=== PATIENT | male | born 1945 | race Caucasian/White ===

== ENCOUNTER 2020-04-01 08:40 | Inpatient (IN) | payer MEDICARE ==
[2020-04-01] VITALS (184 sets, daily range): BP systolic 74–143; BP diastolic 50–97; PULSE 84–126; TEMP 97.7–98.5; O2SAT 81–100
[~2020-04-01] VITALS: Ht 177.8 cm; Wt 118.0 kg
[2020-04-01 09:22] LABS: HEMATOCRIT 38.1 % (42.0-52.0); HEMOGLOBIN 13.3 g/dl (13.5-18.0); MEAN CELL VOLUME 93 fl (80.0-100.0); MEAN CORPUSCULAR HEMOGLOBIN 33 pg (27.0-31.0); MEAN CORPUSCULAR HGB CONC 35 g/dl (33.0-37.0); PLATELET COUNT 240 K/mm3 (130-400); RED BLOOD COUNT 4.09 M/mm3 (4.20-5.60); REDCELL DISTRIBUTION WIDTH-CV 12.7 % (11.5-14.5)
[2020-04-01 09:31] LABS: INR 1.1 (0.8-3.0); PROTHROMBIN TIME 11.9 SECONDS (9.7-12.8)
[2020-04-01 09:32] LABS: ALBUMIN 4.3 gm/dL (3.5-5.0); BILIRUBIN,TOTAL 0.7 mg/dL (0.0-1.0); CALCIUM 8.8 mg/dL (8.4-10.2); CREATININE, serum 1.2 (0.66-1.25); POTASSIUM 3.9 mmol/L (3.4-5.0); TOTAL PROTEIN 7.4 gm/dL (6.4-8.2)
[2020-04-01] MEDS ORDERED: TYLENOL 8 HR PO (10:04)
[2020-04-01] MEDS ORDERED: ASPIRIN E.C. 8181 MG PO (10:05)
[2020-04-01] MEDS ORDERED: NORVASC 10MG10 MG PO (10:06)
[2020-04-01] MEDS ORDERED: TOPROL XL 25MG25 MG PO (10:06)
[2020-04-01] MEDS ORDERED: COZAAR100 MG PO (10:07)
[2020-04-01] MEDS ORDERED: FLOMAX 0.40.4 MG/CAP PO (10:08)
[2020-04-01] MEDS ORDERED: ULTRAM 50MG TAB50 MG PO (10:09)
[2020-04-01] MEDS ORDERED: PRAVACHOL 40MG40 MG PO (10:09)
[2020-04-01] MEDS ORDERED: PEPCID40 MG PO (10:10)
[2020-04-01] MEDS ORDERED: NEURONTIN300 MG/CAP PO (10:11)
[2020-04-01] MEDS ORDERED: LASIX 20MG TABL20 MG PO (10:12)
[2020-04-01] MEDS ORDERED: GLUCOPHAGE500 MG/TAB PO (10:12)
[2020-04-01] MEDS ORDERED: NOVOLIN 70/30 710 ML SQ (10:15)
--- NOTE | 2020-04-01 11:18 | NUR ---
DR. CAMPO AT BS TO DISCUSS POC, PT HAS CONVERTED BACK TO SINUS AND THEN BACK TO AFIB AT THIS TIME.
--- NOTE | 2020-04-01 12:55 | NUR ---
PT ARRIVES BACK FROM [facility] AND PLACED ON BEDSIDE CONTINUOUS MONITOR. PT TO [facility] WITH JENNY RN AT 1015. RT WRIST CATH SITE LOOKS GOOD AND HAS A TR BAND IN PLACE. PER REPORT, NO AIR HAS BEEN RELEASSED FROM SITE AND PER DR SANCHEZ WOULD LIKE TO NOT START RELEASING ANY AIR UNTIL FOUR HOURS POST, TR BAND PLACED AT 1100. PT DENIES ANY CP/PRESSURE UPON ARRIVAL TO UNIT. PT ON RA. SEE GTT FLOWSHEET. CALL LIGHT AND URINAL WITHIN REACH.
--- NOTE | 2020-04-01 13:15 | NUR ---
PT remains awake and alert, and in no acute distress while waiting for transfer to ICU for treatment of his new onset AFIB. Cardizem drip at 5mg/hr and NS 150/hr infusing to 20 g saline lock to rt hand. Pt tolerating treatment well. He has been up to commode x 2 with no problem with stand by assist. I have given report to Ingrid ZUNIGA. I also spoke with pt's in the lobby and updated her on poc encouraging her to call ICU for updates on her 's care.
--- NOTE | 2020-04-01 14:52 | NUR ---
DR BERUMEN AT BEDSIDE FOR ASSESSMENT.
--- NOTE | 2020-04-01 22:00 | NUR ---
Patient was transferred from ICU to medical floor-- VSS, Tele on, NSR at this time, rate 82/min, Alert/oriented, very talkative ,, Has IV fluids of 1/2 NS at 50cc/hr and Cardizem drip at 5mg/hr,,
[2020-04-02 01:02] VITALS: BP 140/64; PULSE 88; TEMP 98.4
--- NOTE | 2020-04-02 04:30 | NUR ---
Has been resting on and off, patient informed nurse he did not get an answer from the staff about more nerve pain pills tonight so he did take his own Neurontin and also took his own Tramadol at this time--- in formed him that he cannot annetta his own meds for safety reasons--pt states understanding,, I will take his home meds out of his room amd put in med room -- pt may be going home today--will let day nurse know about where his home meds are kept-
[2020-04-02 04:58] VITALS: BP 145/52; PULSE 88; TEMP 97.6
[2020-04-02 06:22] LABS: CALCIUM 8.7 mg/dL (8.4-10.2); CREATININE, serum 1.15 (0.66-1.25); MAGNESIUM 1.5 mg/dL (1.6-2.3); POTASSIUM 4.1 mmol/L (3.4-5.0)
[2020-04-02 06:48] LABS: TSH w REFLEX 0.526 uIU/mL (0.465-4.680)
--- NOTE | 2020-04-02 07:00 | NUR ---
Report received from EFRAIN Vela. PT in bed sleeping, called, will let him know and ocntinue to monitor.
[2020-04-02 07:48] VITALS: BP 132/52; PULSE 86; TEMP 98
[2020-04-02 08:20] LABS: HEMOGLOBIN 12.1 g/dl (13.5-18.0); MEAN CELL VOLUME 97 fl (80.0-100.0); MEAN CORPUSCULAR HEMOGLOBIN 33 pg (27.0-31.0); MEAN CORPUSCULAR HGB CONC 34 g/dl (33.0-37.0); MEAN PLATELET VOLUME 9.6 fl (7.4-10.4); PLATELET COUNT 212 K/mm3 (130-400); RED BLOOD COUNT 3.71 M/mm3 (4.20-5.60); REDCELL DISTRIBUTION WIDTH-CV 13.1 % (11.5-14.5)
[2020-04-02 08:47] LABS: HEMATOCRIT 35.8 % (42.0-52.0)
[2020-04-02 08:52] LABS: EOSINOPHIL 3 % (0-4); NEUTROPHILS 39 % (42.0-75.2)
[2020-04-02 08:53] LABS: PLATELET ESTIMATE NORMAL (NORMAL)
[2020-04-02 08:54] LABS: LYMPHOCYTE 51 % (20.0-51.0)
--- NOTE | 2020-04-02 09:15 | NUR ---
Assessment charted. PT is very loud and talkative, has a hard time resting and listening to plan of care but is agreeable to plan when he can calm down. Pt rates pain in feet and hands at 4/10. RW IVF with cardz gtt, IVF and magnesium. Pt denies needs, will continue to monitor.
[2020-04-02 11:42] VITALS: BP 151/59; PULSE 95; TEMP 97.6
--- NOTE | 2020-04-02 12:40 | NUR ---
[employer] visited extensively and offered support with patient. Nothing else needed at this time.
[2020-04-02] MEDS ORDERED: PACERONE400 MG PO (13:12)
[2020-04-02] MEDS ORDERED: ELIQUIS 5MG PO (13:13)
[2020-04-02] MEDS ORDERED: CARDIZEM CD 12120 MG PO (13:14)
[2020-04-02] MEDS ORDERED: CORDARONE200 MG/TAB PO (13:17)
--- NOTE | 2020-04-02 14:23 | NUR ---
SW met with patient to conduct intake assessment. Patient lives at home in [place] with Rose (P# [phone]). Patient does not have DPOA-HC and was not interested in paperwork at this time. Patient is independent at home, but he does use a cane for mobility. Patient states that he has a walker but does not need it presently. Patient see physician at [facility] in [place] but does not remember the name. Patient uses [facility] for medications. Patient states that he needs no assistance in affording medications. Patient plans to return home with Rose today 04/02. There are no further needs at this time.
--- NOTE | 2020-04-02 15:00 | NUR ---
Discharge teaching completed at this time. Pt received discharge packet, meds and scripts reviewed, f/u appointments reviewed. Pt received packet, all belongings, signed forms. INT dc'd, tip intact. Pt escorted out by medical staff, family to drive home, criteria met.
== END 2020-04-02 15:00 | disposition home or self-care (01) | DRG 310 ==
LOC: COL.RAD 08:40 → ICU 12:18 → COL.RAD 12:18 → ICU 13:40 → MEDICAL 21:44
PROVIDERS: Internal Medicine Interventional Cardiology; ADMIT Internal Medicine
PROC: 5A2204Z Restoration of Cardiac Rhythm, Single (ICD-10-PCS; principal; 2020-04-01)
DX: I48.0 Paroxysmal atrial fibrillation (principal); R06.09 Other forms of dyspnea; I95.9 Hypotension, unspecified; E11.42 Type 2 diabetes mellitus with diabetic polyneuropathy; G89.29 Other chronic pain; E78.5 Hyperlipidemia, unspecified; E11.649 Type 2 diabetes mellitus with hypoglycemia without coma; E66.9 Obesity, unspecified; Z79.82 Long term (current) use of aspirin; Z79.4 Long term (current) use of insulin; Z68.37 Body mass index [BMI] 37.0-37.9, adult
CPT/HCPCS: 99239; J1815; J2704; J3475; J7030